=== PATIENT | male | born 1980 | race Caucasian/White ===

== ENCOUNTER 2017-11-19 19:03 | Emergency (ER) | payer OTHER ==
[~2017-11-19] VITALS: Ht 188 cm; Wt 77.1 kg
[2017-11-19] MEDS ORDERED: DITROPAN XL5 M1 PO (19:16)
[2017-11-19] MEDS ORDERED: LIORESAL 10 MG10 MG PO (19:16)
[2017-11-19] MEDS ORDERED: CLONAZEPAM 1 MG1 M1 PO (19:16)
[2017-11-19] MEDS ORDERED: OXYCONTIN10 M1 PO (19:17)
[2017-11-19] MEDS ORDERED: BACTRIM DS TAB1 EACH PO (20:21)
[2017-11-19] MEDS ORDERED: PERCOCET 5-3251 EACH PO (20:28)
[2017-11-19 20:32] VITALS: BP 132/83
== END 2017-11-19 20:32 | disposition home or self-care (01) ==
LOC: ER 19:03
DX: L89.312 Pressure ulcer of right buttock, stage 2 (principal)

== ENCOUNTER → 2017-12-01 | Outpatient (CLI) | payer OTHER ==
[~2017-12-01] MED LIST: BACTRIM DS TAB1 EACH PO; CLONAZEPAM 1 MG1 M1 PO; DITROPAN XL5 M1 PO; LIORESAL 10 MG10 MG PO; OXYCONTIN10 M1 PO; PERCOCET 5-3251 EACH PO
== END ==
LOC: HYPER 07:46
DX: L89.313 Pressure ulcer of right buttock, stage 3 (principal); S71.001D Unspecified open wound, right hip, subsequent encounter; M62.3 Immobility syndrome (paraplegic); G82.20 Paraplegia, unspecified; X58.XXXD Exposure to other specified factors, subsequent encounter

== ENCOUNTER → 2018-05-30 | Outpatient (CLI) | payer OTHER | LOC: HYPER 06:59 | DX: L89.312 Pressure ulcer of right buttock, stage 2 (principal); L89.214 Pressure ulcer of right hip, stage 4; L89.152 Pressure ulcer of sacral region, stage 2; M62.3 Immobility syndrome (paraplegic); F41.9 Anxiety disorder, unspecified ==

== ENCOUNTER 2019-10-03 23:33 | Inpatient (IN) | payer OTHER ==
[~2019-10-03] VITALS: Ht 188 cm; Wt 79.4 kg
[2019-10-03 23:38] VITALS: BP 131/79
[2019-10-04 00:52] LABS: ABSOLUTE NEUTROPHILS 12.2 thou/uL (1.4-8.2); BASOPHILS 0.4 % (0.0-2.0); EOSINOPHILS 0.4 % (0.0-3.0); HEMATOCRIT 36.5 % (42.0-52.0); HEMOGLOBIN 12.1 gm/dL (14.0-18.0); LYMPHOCYTES 10.3 % (24.0-44.0); MCHC 33.3 g/dL (28.0-37.0); MCV 84.3 fL (80.0-100.0); MONOCYTES 4.9 % (1.0-8.0); PLATELET COUNT 636 thou/uL (150-400); RBC 4.33 mil/uL (4.50-6.00); RDW 14.9 % (10.5-14.5); WBC 14.5 thou/uL (4.0-11.0)
[2019-10-04 01:09] LABS: CALCIUM 8.7 mg/dL (8.5-10.1); CREATININE 1.2 mg/dL (0.7-1.3); POTASSIUM 3.2 mmol/L (3.5-5.1)
[2019-10-04 01:14] LABS: ALBUMIN 2.5 g/dL (3.4-5.0); TOTAL BILIRUBIN 0.2 mg/dL (<0.1-1.0); TOTAL PROTEIN 7.5 g/dL (6.4-8.2)
[2019-10-04 04:00] VITALS: BP 88/67
[2019-10-04 10:23] VITALS: BP 109/55
--- NOTE | 2019-10-04 15:48 | NUR ---
ATTEMPTED TO CALL REPORT TO 4W. NURSE UNAVAILABLE AT THIS TIME AND IS TO CALL BACK
--- NOTE | 2019-10-04 16:40 | HC ---
[facility] [place] [address] CONSULTATION Name: ZACK COMER Room #: 170-13 ADM IN M.R.#: [id number] Admission: 10/04/19 Attend Phys: Sonam Mcmillan MD Discharge: Date of : 78 Report #: [id number] THIS REPORT FOR: cc: Yogesh Cuevas MD, Thad A. MD Gates, Clinton R. MD ~ CC: Sonam Cuevas DATE OF SERVICE: 10/04/2019 CONSULTING PHYSICIAN: Dr. Calvillo. REASON FOR CONSULTATION: Sacral wound. ASSESSMENT: Unstageable sacral wound. RECOMMENDATIONS: We will plan for sharp excisional debridement on 10/05/2019 at 11:00 a.m. HISTORY OF PRESENT ILLNESS: The patient is a very pleasant 39-year-old male with paraplegia who presented to the ER and was found to have a sacral decubitus wound. He reports that this was a result of a fall 2 weeks ago and he has been managing it himself at home. Yesterday when he was taking his shower, he leaned and heard a pop and noticed drainage from the wound site. He reports subjective fevers and chills. He denies chest pain, shortness of breath, lightheadedness, nausea, vomiting, diarrhea. PAST MEDICAL HISTORY: 1. Spinal injury. 2. Paraplegia. PAST SURGICAL HISTORY: Denies. SOCIAL HISTORY: Denies current use of alcohol, tobacco or recreational drugs. FAMILY HISTORY: Denies coagulopathy or malignancy. REVIEW OF SYSTEMS: CONSTITUTIONAL: No fever. No chills. HEENT: Denies blurring of vision, double vision, headaches, hearing loss, sinus drainage or sore throat. Denies blurring of vision, double vision, headaches, hearing loss, sinus drainage or sore throat. CARDIOVASCULAR: Denies chest pain, palpitations, orthopnea or paroxysmal nocturnal dyspnea. RESPIRATORY: Denies cough, wheezing, hemoptysis, or shortness of air. [facility] [address] [place] [address] CONSULTATION Name: ZACK COMER Room #: [address] [place] [address] [place] ..#: [id number] Admission: 10/04/19 Attend Phys: Sonam Mcmillan MD Discharge: Date of : 78 Report #: [id number] GASTROINTESTINAL: No nausea. No vomiting. No diarrhea. No Heartburn. No nausea. No vomiting. No diarrhea. No Heartburn. GENITOURINARY: Denies dysuria or hematuria or kidney stones. No urinary frequency, urgency or incontinence. Denies dysuria or hematuria or kidney stones. No urinary frequency, urgency or incontinence. MUSCULOSKELETAL: See above and below. NEUROLOGICAL: See above and below. HEMATOLOGIC AND LYMPHATICS: Denies easy bruising, easy bleeding or enlarged lymph nodes. SKIN: See above and below. ENDOCRINE: No heat or cold intolerance PSYCHIATRIC: Denies depression, anxiety, or schizophrenia. PHYSICAL EXAMINATION: VITAL SIGNS: Temperature 35.8, pulse 89, respiratory rate 18, blood pressure 109/55, pulse ox 98% on room air. GENERAL: No apparent distress, alert and oriented x3. HEENT: PERRLA, EOMI, MMM, NCAT NECK: Supple. No LAD CARDIOVASCULAR: Regular rhythm and rate. Hemodynamically stable. Normal capillary refill. Regular rhythm and rate. Hemodynamically stable. Normal capillary refill. PULMONARY: Nonlabored. Clear to auscultation bilaterally ABDOMEN: Soft, nontender to palpation, no guarding, no rigidity, no rebound tenderness, no hernias. EXTREMITIES: Calves soft, nontender, no edema. SKIN: Unstageable foul smelling necrotic appearing sacral wound. PSYCHIATRIC: Normal mood and affect Normal mood and affect NEUROLOGICAL: Grossly intact. CN II-XII grossly intact. MUSCULOSKELETAL: 5/5 strength in upper extremities and lower extremities bilaterally LYMPHATICS: No cervical, inguinal, or supraclavicular lymphadenopathy. IMAGING: CT lumbar spine. IMPRESSION: 1. Deep soft tissue ulcer overlying the coccyx and sacrococcygeal junction with subtle cortical irregularity of the posterior margin of the coccyx at the base of the ulcer, suggesting subtle cortical bone destruction and osteomyelitis. Stranding and soft tissue thickening in the subcutaneous fat surrounding the ulcer and posterior to the sacrum likely reflecting cellulitis. 2. Cholelithiasis. 3. [place] [address] CONSULTATION Name: ZACK COMER Room #: 170-13 ADM IN M.R.#: [id number] Admission: 10/04/19 Attend Phys: Sonam Mcmillan MD Discharge: Date of : 78 Report #: [id number] LABORATORY DATA: White blood count 14.5, hemoglobin 12.1, hematocrit 36.5, platelets 636. Sodium 135, potassium 3.2, creatinine 1.2, lactic acid 1. <ELECTRONICALLY SIGNED> By: Elijah Calvillo MD 10/04/19 1640 0921 [id number] Elijah Calvillo MD /nt
[2019-10-04 17:13] VITALS: BP 121/77
[2019-10-04 17:40] VITALS: BP 126/75
[2019-10-04 19:01] VITALS: BP 124/84
--- NOTE | 2019-10-04 20:26 | NUR ---
Patient transferred to this unit at approximately 1730. Patient is a paraplegic. He has a sacral wound that appears to be necrotic, smell is very foul. Abrasion-type wound on lower right buttock (no drainage or odor). Pictures taken of both areas. Patient is to be NPO after midnight for I&D in am. Patient has an IV in LAC and in LFA. IV is running with no adverse effects from Antibiotics. Patient's only concern since transfer has been "pain medications." POC followed. Report given to on-coming nurse.
[2019-10-04] MEDS ORDERED: NORTRIPTYLINE H50 M3 PO (21:56)
--- NOTE | 2019-10-05 05:35 | NUR ---
Patient aox4 makes needs known. patient paraplegic.patient been npo since midnight. patient has a sacrum wound with moderate drainage and strong odor with s/s of infection. iv abt administed per order. dressing changed x1 this shift at around 0330. pain controlled this shift. patient in bed asleep at this time breathing regular and unlaboured.
[2019-10-05 06:42] LABS: ABSOLUTE NEUTROPHILS 6.2 thou/uL (1.4-8.2); BASOPHILS 0.5 % (0.0-2.0); EOSINOPHILS 2.2 % (0.0-3.0); HEMATOCRIT 32.4 % (42.0-52.0); HEMOGLOBIN 10.5 gm/dL (14.0-18.0); LYMPHOCYTES 18.2 % (24.0-44.0); MCH 27.7 pg (26.0-34.0); MCHC 32.3 g/dL (28.0-37.0); MCV 85.8 fL (80.0-100.0); MONOCYTES 7.6 % (1.0-8.0); POLYS 71.5 % (36.0-66.0); RBC 3.78 mil/uL (4.50-6.00); RDW 15.7 % (10.5-14.5); WBC 8.6 thou/uL (4.0-11.0)
[2019-10-05 06:47] LABS: PLATELET COUNT 474 thou/uL (150-400)
[2019-10-05 06:54] LABS: CALCIUM 7.4 mg/dL (8.5-10.1); POTASSIUM 3.7 mmol/L (3.5-5.1)
[2019-10-05 08:05] VITALS: BP 94/62
[2019-10-05 15:56] VITALS: BP 115/79
--- NOTE | 2019-10-05 16:42 | NUR ---
Patient had surgery this am which lasted until afternoon. He had Irrigation and Debridement of sacral wound with Dr Calvillo. After this, an MRI was done. Patient did not arrive back on unit until approximately 1600. Patient has a wound vac in place that is running without complications. Vital signs have been stable. POC followed. Will continue to monitor this patient and report todays activities to on-coming nurse.
[2019-10-05 20:05] VITALS: BP 116/78
--- NOTE | 2019-10-06 02:34 | NUR ---
ASSUMED CARE OF PT AT 1900HRS. PT IS AOX4 ADN LETS NEEDS BE KNOWN. FALL PRECAUTION IN PLACE. ABX TREATMENT CONTINUED. PT REPORTED SOME PAIN AND WAS TREATED WITH PRN PAIN MEDS. WOUND VAC IN PLACE AND IS WITHOUT ANY LEAKS. PT WAS ABLE TO GET COMFORTABLE AND SLEEP PART OF THE SHIFT. VSS AND NO S/S OF ACUTE DISTRESS. WILL CONTINUE TO MONITOR.
[2019-10-06 08:39] VITALS: BP 95/58
[2019-10-06 12:11] LABS: ABSOLUTE NEUTROPHILS 9.1 thou/uL (1.4-8.2); BASOPHILS 0.2 % (0.0-2.0); EOSINOPHILS 0.6 % (0.0-3.0); HEMATOCRIT 35.2 % (42.0-52.0); HEMOGLOBIN 11.3 gm/dL (14.0-18.0); LYMPHOCYTES 11.6 % (24.0-44.0); MCH 27.7 pg (26.0-34.0); MCHC 32.2 g/dL (28.0-37.0); MCV 86.1 fL (80.0-100.0); MONOCYTES 4.1 % (1.0-8.0); POLYS 83.5 % (36.0-66.0); RBC 4.08 mil/uL (4.50-6.00); RDW 15.6 % (10.5-14.5); WBC 10.9 thou/uL (4.0-11.0)
[2019-10-06 12:15] LABS: PLATELET COUNT 579 thou/uL (150-400)
[2019-10-06 12:34] LABS: ALBUMIN 2.3 g/dL (3.4-5.0); CALCIUM 8.9 mg/dL (8.5-10.1); CREATININE 0.9 mg/dL (0.7-1.3); MAGNESIUM 2.3 mg/dL (1.8-2.4); POTASSIUM 3.2 mmol/L (3.5-5.1); TOTAL BILIRUBIN 0.2 mg/dL (<0.1-1.0); TOTAL PROTEIN 7.3 g/dL (6.4-8.2)
--- NOTE | 2019-10-06 15:14 | NUR ---
PT ADMITTED RELATED TO SACRAL ULCER POSSIBLE OSTEO. CM REVIEWED CHART AND SPOKE WITH CARE TEAM. CM MET WITH PT AT BEDSIDE THIS DAY. PT IS A&O X4. CM ROLE INTRODUCED. PT INDICATED HE LIVES ALONE IN A TOWNHOUSE WITH NO STEPS. PT INIDCATED HE HAS A MANUAL WC AND A SHOWER CHAIR FOR HOME USE. PT INDICATED HE HAD BEEN INDEPDENENT WITH ADLS AND TRANSFERES CHINESE HERBALIST. PT INDICATED HIS SISTER, BROTHER, AND MOTHER ARE ALL SUPPORTIVE. PT HAD I&D YEST AND HAD WOUND VAC PLACED. CM SPOKE WITH PT ABOUT OPTIONS FOR POST ACUTE CARE STAY MENTIONED LTAC. PT DOESN'T HAVE REV CODES. REFERRAL TO BE SENT TO [facility] FOR REVIEW FOR POSSIBLE ADMISSION. PT INDICATED THAT WC PLANS TO DO CLEAN OUT AGAIN WEDNESDAY. CM TO FOLLOW INDICATED WITH DC PLANNING.
--- NOTE | 2019-10-06 15:50 | NUR ---
DISCHARGE PLANNING. ANTICIPATED DISCHARGE PLANNED FOR NEXT WEEK PER UNIT SW. PATIENT REFERRAL FAXED TO [facility] FOR REVIEW PER REQUEST. CALL PLACED TO [facility] TO NOTIFY. AWAITING RESPONSE. FOLLOWING.
[2019-10-06 19:12] VITALS: BP 112/76
--- NOTE | 2019-10-06 20:12 | NUR ---
Assumed patient care at 0715. Patient continues on Wound Vac. It has had approximately 50cc of Output, secure and intact in sacral area. Vital signs stable. He has been requesting and receiving Ultram, Hydrocodone 10/325mg and Fentanyl IV Push with partial pain control. New IN placed in left hand. IV fluids running without adverse effects. Report given to on-coming nurse.
--- NOTE | 2019-10-07 03:29 | NUR ---
PT CARE ASSUMED WITH PT WATCHING TV AT 1900.PT IS A/O X4.PT HAD AN I$D ON SACRAL WOUND ON 10/05/19 AND A WOUND VAC ON CONTINUES SUCTION PUT IN PLACE.PT C/O PAIN AND PAIN MANAGEMENT WITH FENTANYL,HYDROCODONE AND TRAMADOL WITH LITTLE OR NO RELIEF.IV ACCESS ON LT WRIST .WILL CONTINUE TO MONITOR PER POC
[2019-10-07 06:11] LABS: HEMATOCRIT 29.8 % (42.0-52.0); HEMOGLOBIN 9.8 gm/dL (14.0-18.0); MCH 27.9 pg (26.0-34.0); MCHC 32.9 g/dL (28.0-37.0); RBC 3.51 mil/uL (4.50-6.00); RDW 15.7 % (10.5-14.5); WBC 7.1 thou/uL (4.0-11.0)
[2019-10-07 06:21] LABS: PLATELET COUNT 502 thou/uL (150-400)
[2019-10-07 06:32] LABS: CALCIUM 8.3 mg/dL (8.5-10.1); MAGNESIUM 2.1 mg/dL (1.8-2.4); POTASSIUM 3.9 mmol/L (3.5-5.1)
[2019-10-07 08:00] VITALS: BP 112/76
[2019-10-07 08:15] LABS: ABSOLUTE NEUTROPHILS 3.8 thou/uL (1.4-8.2); NUCLEATED RBCS 1 /100WBC; PLATELET ESTIMATE INCREASED
[2019-10-07 08:16] LABS: ANISOCYTOSIS 1+
[2019-10-07 19:25] VITALS: BP 108/70
--- NOTE | 2019-10-07 20:39 | NUR ---
Assumed pt care this am, pt is able to repostion and turn on his own. Wound vac patent and draining. Pain managed with medications, pt also straight cats himself using his own supplies. POC followed eloina no sings or verbalizations of distress noted. Endorsed to the night nurse.
--- NOTE | 2019-10-08 02:41 | NUR ---
ASSUMED CARE OF PT AT 1900HRS. PT IS AOX4 AND LETS NEEDS BE KNOWN. FALL PRECAUTION IN PLACE. ABX TREATMENT CONTINUED. PT REPORTED SOME PAIN AND WAS TREATED WITH PRN PAIN MEDS. PT STRAIGHT CATHS SELF. WOUND VAC IN PLACE AND WAS RESEALED. WOUND VAC IS PATIENT AND WORKING WELL. PT WAS ABLE TO GET COMFORTABLE AND SLEEP PART OF THE SHIFT. VSS AND NO S/S OF ACUTE DISTRESS. WILL CONTINUE TO MONITOR.
[2019-10-08 07:40] VITALS: BP 104/67
[2019-10-08 14:17] LABS: HEMATOCRIT 34.4 % (42.0-52.0); HEMOGLOBIN 11.1 gm/dL (14.0-18.0); MCH 27.6 pg (26.0-34.0); MCHC 32.1 g/dL (28.0-37.0); MCV 85.8 fL (80.0-100.0); PLATELET COUNT 552 thou/uL (150-400); RBC 4.01 mil/uL (4.50-6.00); RDW 15.8 % (10.5-14.5); WBC 6.6 thou/uL (4.0-11.0)
[2019-10-08 14:30] LABS: % SATURATION 30 % (20-39); IRON 39 ug/dL (65-175); TIBC 130 ug/dL (250-450)
[2019-10-08 14:35] LABS: ANION GAP 5 mmol/L (7-16); BUN 13 mg/dL (7-18); CALCIUM 8.9 mg/dL (8.5-10.1); CHLORIDE 99 mmol/L (98-107); CO2 33 mmol/L (21-32); CREATININE 1.1 mg/dL (0.7-1.3); GLUCOSE 83 mg/dL (74-106); MAGNESIUM 1.9 mg/dL (1.8-2.4); POTASSIUM 3.9 mmol/L (3.5-5.1); SGOT 21 U/L (15-37); SGPT 24 U/L (30-65); SODIUM 137 mmol/L (136-145); TOTAL BILIRUBIN < 0.1 mg/dL (<0.1-1.0); TOTAL PROTEIN 6.2 g/dL (6.4-8.2)
[2019-10-08 14:51] LABS: ABSOLUTE NEUTROPHILS 4.4 thou/uL (1.4-8.2)
[2019-10-08 14:52] LABS: PLATELET ESTIMATE INCREASED
[2019-10-08 14:53] LABS: METAMYELOCYTES 1 %
[2019-10-08 15:45] VITALS: BP 104/70
--- NOTE | 2019-10-08 20:51 | NUR ---
Assumed patient care at 0715. Vital signs stable except for Temperature of 99.2 this evening. Patient was given Tylenol 650mg po for this. Patient has complained of "not feeling well" throughout the shift. He has slept most of the day; fluid intake has been adequate but food intake has been poor. Patient continues to straight cath himself. Output has been over 2000cc's today. He has requested that he not receive Normal Saline IV fluids due to adequate fluid intake and output. IV Team placed fourth IV in left forearm since admission, as , they keep going bad (no infiltration, unable to push flushes through). Patient has Bisacodyl Suppositories prn, was offered and refused. He has been "back and forth" about his pain medications, stating "I don't want to take them today", and, "I guess I just want to stay on the Fentanyl IV Push pain medication." He was given Hydrocodone 10/325 po at 0900 for "level nine" sacral pain, then given Fentanyl 25mg per IV Push with evening medications. He reports only "mild relief" from these medications. Wound Vac continues to be intact (approximately 50cc output today). POC followed. Report given to On-coming nurse.
[2019-10-08 21:30] VITALS: BP 137/83
--- NOTE | 2019-10-09 04:46 | NUR ---
ASSUMED PT CARE AROUND 1930. AXOX4. WOUND VAC TO SACRUM INTACT. DIMAS PUMP STARTED AND WAFFLE CUSIONS PLACED UNDER PT'S HEELS D/T PRESSURE REDUCTION BOOTS NOT READILY AVAILABLE AT THIS TIME. PER 'S ORDER, INFORMED PT THAT HIS FAAMILY CAN BRING THE MAGIC BULLET FOR CONSTIPATION. PT WILL ASK HIS MOTHER TO BRING SOME. PAIN MEDS GIVEN PER MD ORDER. IVF D/C PER CORPORATE TRUST OFFICER. NO S/S ACUTE DISTRESS NOTED OR REPORTED AT THIS TIME. WILL CONT TO MONITOR FOR ANY CHANGES IN CONDITION.
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
[2019-10-09 08:00] VITALS: BP 111/74
[2019-10-09 15:00] VITALS: BP 124/84
--- NOTE | 2019-10-09 16:19 | NUR ---
[facility] INDICATED THAT THEY ARE ABLE TO ACCEPT PT ONCE MEDICALLY STABLE. CM NOTIFIED WOUND CARE, PT, ID, AND HOSPITALIST. DR. VALDEZ INDICATED THAT PT WOULD HAVE A KUB THIS AFTERNOON AND THAT DC WOULD LIKELY BE TOMORROW. CM TO FOLLOW INDICATED WITH DC PLANNING.
--- NOTE | 2019-10-09 17:07 | PATH ---
[facility] [address] [place] [address] PATHOLOGY RPT PROCEDURE Name: HERMILO ZEPEDA Yuki Room #: 457-P [facility] IN M.R.#: [id number] Admission: 10/04/19 Date of : 78 Discharge: Report #: [id number] Path Case #: [id number] [facility] Accession Number: [id number] . 01 Material submitted: . coccyx - COCCYX . 01 Clinical history: . Sacral wound, unstageable. . 02 Diagnosis: Bone, coccyx, debridement: - Fragments of bone associated with acute osteomyelitis as well as osteonecrosis. - Surrounding fibrovascular connective tissue showing marked acute inflammation, as well as fibrinoid degeneration and necrosis, consistent with debridement tissue. (IUV:kassy; 10/09/2019) [facility] 10/09/2019 1556 Local . 02 Electronically signed: . Pratibha Mathias MD, Pathologist NPI- [id number] . 01 Gross description: . Received in formalin labeled "Hermilo Zepeda coccyx" is an irregular fragment of grace-white bone and attached soft tissue measuring 1.3 x 0.8 x 0.7 cm. The specimen is bisected and submitted in A1 following decalcification. ([facility]; 10/07/2019) [facility] 10/07/2019 0957 Local . 02 Pathologist provided ICD-10: M86.10, M87.9 . 02 CPT . 376144, 211377 Specimen Comment: A courtesy copy of this report has been sent to [phone] Specimen Comment: [phone], Specimen Comment: Report sent to DR TOLENTINO,DR MEDRANO / DR RAY Performed at: [address] [id number] MD Chalino Galeas MD Phone: [phone] Performed at: [address] [id number] [address] [address] PATHOLOGY RPT PROCEDURE Name: HERMILO ZEPEDA A Room #: 457-P ADM IN M.R.#: [id number] Admission: 10/04/19 Date of : 78 Discharge: Report #: [id number] Path Case #: [id number] MD Pratibha Mathias MD Phone: [phone]
[2019-10-09 18:59] VITALS: BP 101/68
--- NOTE | 2019-10-09 19:28 | NUR ---
Had a big BM, compained of pain in wound site, pain medication given and worked.
--- NOTE | 2019-10-10 02:57 | NUR ---
PAIN CONTROLLED THIS SHIFT. PATIENT HAS A WOUND VAC RUNNING. PATIENT UPSET D/T GOING TO THE LONG TERM. PATIENT CONTINUES TO SAY HE FEELS DEPRESSION BECAUSE HE DONT WANT TO GIVE UP HIS APARTMENT AND HE DONT KNOW WHERE TO KEEP HIS CAR. GREGORY WILL ADVICED TO TALK TO AUGER SUPERVISOR IN THE AM.PATIENT UP PLAYING VIDEO GAMES.
[2019-10-10 07:00] VITALS: BP 101/52
[2019-10-10] MEDS ORDERED: PERCOCET 7.5-31 EACH PO (11:51)
[2019-10-10] MEDS ORDERED: NICOTINE1 EAC2 TRANSDERM (11:54)
[2019-10-10] MEDS ORDERED: PROBIOTIC1 EAC7 PO (11:54)
[2019-10-10] MEDS ORDERED: MIRALAX17 GM PO (11:54)
[2019-10-10] MEDS ORDERED: UNASYN 3 GM VIAL3 G1 IM (11:54)
[2019-10-10] MEDS ORDERED: ENOXAPARIN40 MG/0.1 SUBQ (11:54)
[2019-10-10] MEDS ORDERED: AMITIZA 24 MCG24 MCG PO (11:54)
[2019-10-10] MEDS ORDERED: TYLENOL325 MG PO (11:54)
--- NOTE | 2019-10-10 13:50 | NUR ---
CARE TEAM INDICATED THAT PT IS MEDICALLY STABLE TO DISCHARGE TO [facility] THIS DAY. [facility] VISITED PT AT BEDSIDE THIS AM. ORDERS FAXED. CHART COPY MADE. PT TO HAVE WOUND VAC REMOVED AND A WET TO DRY ADMINISTERED. PT INIDCATED DESIRE TO DISCHARGE IN HIS WC WHICH HE HAS IN HIS ROOM RATHER THAN VIA STRETCHER OR AMBULANCE. WC STATED THAT WAS SAFE. REPORT TO BE CALLED TO . NO OTHER CM INTERVENTION INDICATED. CASE CLOSED.
--- NOTE | 2019-10-10 14:28 | NUR ---
WOUND CARE D/C NOTE; VAC DRESSING REMOVED. CLEANSED WOUND WITH NORMAL SALINE. APPLIED A SALINE MOIST GAUZE, COVERED WITH AN ABD. NON ODEROUS WOUND. RECOMMENDATION; CONTINUE VAC THERAPY AT [facility]. RN PRESENT
--- NOTE | 2019-10-10 17:17 | NUR ---
VASCULAR ACCESS NOTE ORDER VERIFIED FOR PICC PLACEMENT. PATIENT CONSENTED FOR PROCEDURE. L BRACHIAL VEIN WIDELY PATENT ON U.S ASSESSMENT. PATIENT PREPPED AND DRAPED UNDER STERILE CONDITIONS. 1% LIDOCAINE 3ML GIVEN SUBQ INJECTION. VEIN CANNULATED WITH ONE ATTEMPT. GUIDEWIRE ADVANCED EASILY. VEIN DILATED. GUIDEWIRE REMOVED INTACT. 4FR SL PICC TRIMMED TO 50CM INSERTED TO 49CM INTERNAL AND 1CM EXTERNAL. CXR VERIFICATION FOR PLACEMENT. LINE RELEASED FOR IMMMEDIATE USE TO RN. LINE FLUSHES AND DRAWS EASILY. PATIENT TOLERATED PROCEDURE WELL. PICC OK TO USE
--- NOTE | 2019-10-10 19:04 | NUR ---
Assumed pt care this am, VS stable. Pain managed with medications. Wound vac removed by wound care team, wet to dry dressing in place. IV removed. PICC line inserted. Report given to [facility] nurse. POC followed no signs or verbalizations of distress have been noted. PT is now dc and left with his WC and belongings.
== END 2019-10-10 18:36 | DRG 853 ==
LOC: ER 23:33 → EROBS 10-04 02:15 → 4W 10-04 02:15 → EROBS 10-04 10:54 → 4W 10-04 17:19
PROVIDERS: Emergency Medicine; Nurse Practitioner; ADMIT Internal Medicine
PROC: 0QBS0ZX Excision of Coccyx, Open Approach, Diagnostic (ICD-10-PCS; principal; 2019-10-05)
PROC: 0QB10ZZ Excision of Sacrum, Open Approach (ICD-10-PCS; principal; 2019-10-05)
PROC: 02H633Z Insertion of Infusion Device into Right Atrium, Percutaneous Approach (ICD-10-PCS; 2019-10-10)
DX: A41.9 Sepsis, unspecified organism (principal); L89.154 Pressure ulcer of sacral region, stage 4; E43 Unspecified severe protein-calorie malnutrition; G82.20 Paraplegia, unspecified; E44.0 Moderate protein-calorie malnutrition; K80.21 Calculus of gallbladder without cholecystitis with obstruction; A18.01 Tuberculosis of spine; M46.28 Osteomyelitis of vertebra, sacral and sacrococcygeal region; E87.6 Hypokalemia; I95.9 Hypotension, unspecified; K59.00 Constipation, unspecified; D47.3 Essential (hemorrhagic) thrombocythemia; D64.9 Anemia, unspecified; Z68.22 Body mass index [BMI] 22.0-22.9, adult; Z98.1 Arthrodesis status; Z79.899 Other long term (current) drug therapy
CPT/HCPCS: 10047; 27000; 50010; 50101; 50386; 50403; 50970; 53078; 62110; 62900; 70005

== ENCOUNTER → 2019-12-27 | Outpatient (CLI) | payer OTHER ==
[~2019-12-27] MED LIST changes: +AMITIZA 24 MCG24 MCG PO; +ENOXAPARIN40 MG/0.1 SUBQ; +MIRALAX17 GM PO; +NICOTINE1 EAC2 TRANSDERM; +NORTRIPTYLINE H50 M3 PO; +PERCOCET 7.5-31 EACH PO; +PROBIOTIC1 EAC7 PO; +TYLENOL325 MG PO; +UNASYN 3 GM VIAL3 G1 IM
== END ==
LOC: HYPER 10:12
DX: L02.31 Cutaneous abscess of buttock (principal); L02.91 Cutaneous abscess, unspecified; M62.3 Immobility syndrome (paraplegic); G82.20 Paraplegia, unspecified; F41.9 Anxiety disorder, unspecified

== ENCOUNTER → 2020-01-10 | Outpatient (CLI) | payer OTHER | LOC: HYPER 13:15 | DX: L02.31 Cutaneous abscess of buttock (principal); L84 Corns and callosities; G82.21 Paraplegia, complete; M62.3 Immobility syndrome (paraplegic); F41.9 Anxiety disorder, unspecified ==

== ENCOUNTER → 2020-01-24 | Outpatient (CLI) | payer OTHER | LOC: HYPER 13:42 | PROVIDERS: ATTEND Emergency Medicine | DX: L02.31 Cutaneous abscess of buttock (principal); L84 Corns and callosities; M62.3 Immobility syndrome (paraplegic); F41.9 Anxiety disorder, unspecified ==

== ENCOUNTER → 2020-02-07 | Outpatient (CLI) | payer OTHER ==
[~2020-02-07] MED LIST changes: +OXYBUTYNIN 5 MG5 M2 PO
== END ==
LOC: HYPER 07:51
PROVIDERS: ATTEND Emergency Medicine
DX: L02.31 Cutaneous abscess of buttock (principal); L84 Corns and callosities; M62.3 Immobility syndrome (paraplegic); F41.9 Anxiety disorder, unspecified

== ENCOUNTER 2020-02-18 18:44 | Inpatient (IN) | payer OTHER ==
[~2020-02-18] VITALS: Ht 188 cm; Wt 83.5 kg
[~2020-02-18 18:44] MED LIST changes: -OXYBUTYNIN 5 MG5 M2 PO
[2020-02-18 19:03] VITALS: BP 101/62
[2020-02-18 19:38] LABS: URINE BILIRUBIN NEGATIVE (Negative); URINE BLOOD 2+ (Negative); URINE CLARITY SL CLOUDY; URINE COLOR YELLOW; URINE GLUCOSE-RANDOM* NEGATIVE (Negative); URINE KETONES NEGATIVE (Negative); URINE PROTEIN (DIPSTICK) 2+ (Negative); URINE SPECIFIC GRAVITY 1.015 (1.005-1.035); URINE UROBILINOGEN 0.2 E.U./dl (0.2-1.0)
[2020-02-18 19:41] LABS: URINE LEUKOCYTES-REFLEX 3+ (Negative); URINE NITRITE-REFLEX POSITIVE (Negative)
[2020-02-18 19:41] LABS: ABSOLUTE NEUTROPHILS 17.2 thou/uL (1.4-8.2); BASOPHILS 0.1 % (0.0-2.0); HEMATOCRIT 36.4 % (42.0-52.0); HEMOGLOBIN 12.1 gm/dL (14.0-18.0); MCH 26.7 pg (26.0-34.0); MCHC 33.3 g/dL (28.0-37.0); MCV 80.1 fL (80.0-100.0); MONOCYTES 3.6 % (1.0-8.0); PLATELET COUNT 245 thou/uL (150-400); POLYS 94.3 % (36.0-66.0); RBC 4.55 mil/uL (4.50-6.00); RDW 17.6 % (10.5-14.5); WBC 18.3 thou/uL (4.0-11.0)
[2020-02-18 19:52] LABS: CALCIUM 8.3 mg/dL (8.5-10.1); CREATININE 2.2 mg/dL (0.7-1.3); POTASSIUM 3.4 mmol/L (3.5-5.1)
[2020-02-18 19:57] LABS: ALBUMIN 2.5 g/dL (3.4-5.0); TOTAL BILIRUBIN 0.2 mg/dL (0.2-1.0)
[2020-02-18 20:20] LABS: CASTS None Seen /LPF (None Seen); CRYSTALS None Seen /LPF (None Seen); SQUAMOUS 0-3 Few /LPF (0-3); URINE WBC-REFLEX >25 Many /HPF (0-5)
[2020-02-18 20:21] LABS: BACTERIA-REFLEX >30 Many /HPF (None Seen); URINE RBC 0-2 Rare /HPF (0-2)
[2020-02-18 21:52] VITALS: BP 101/64
[2020-02-18 22:03] VITALS: BP 101/64
[2020-02-18 23:05] VITALS: BP 94/57
[2020-02-19] MEDS ORDERED: OXYBUTYNIN 5 MG5 M2 PO (01:46)
[2020-02-19] MEDS ORDERED: NORTRIPTYLINE H50 M3 PO (02:58)
[2020-02-19 04:07] LABS: HEMOGLOBIN 11.1 gm/dL (14.0-18.0); MCH 26.3 pg (26.0-34.0); MCHC 31.8 g/dL (28.0-37.0); MCV 82.6 fL (80.0-100.0); RBC 4.24 mil/uL (4.50-6.00); RDW 17.9 % (10.5-14.5); WBC 15.7 thou/uL (4.0-11.0)
[2020-02-19 04:17] LABS: CALCIUM 7.3 mg/dL (8.5-10.1); CREATININE 2.2 mg/dL (0.7-1.3); POTASSIUM 3.4 mmol/L (3.5-5.1)
[2020-02-19 05:51] VITALS: BP 98/62
[2020-02-19 08:29] VITALS: BP 98/73
[2020-02-19 11:10] VITALS: BP 94/49
[2020-02-19 15:27] VITALS: BP 104/63
[2020-02-19 19:40] VITALS: BP 101/60
[2020-02-20 05:14] LABS: HEMATOCRIT 35.6 % (42.0-52.0); HEMOGLOBIN 11.6 gm/dL (14.0-18.0); MCH 26.5 pg (26.0-34.0); MCHC 32.6 g/dL (28.0-37.0); MCV 81.4 fL (80.0-100.0); RBC 4.37 mil/uL (4.50-6.00); RDW 18.5 % (10.5-14.5); WBC 12.9 thou/uL (4.0-11.0)
[2020-02-20 07:39] VITALS: BP 116/73
[2020-02-20 15:48] VITALS: BP 123/76
[2020-02-20 16:26] VITALS: BP 123/76
[2020-02-20 19:57] VITALS: BP 118/85
[2020-02-21 06:01] LABS: HEMATOCRIT 35.6 % (42.0-52.0); HEMOGLOBIN 11.8 gm/dL (14.0-18.0); MCH 26.8 pg (26.0-34.0); MCHC 33.1 g/dL (28.0-37.0); MCV 80.9 fL (80.0-100.0); RBC 4.4 mil/uL (4.50-6.00); RDW 18.6 % (10.5-14.5); WBC 9.3 thou/uL (4.0-11.0)
[2020-02-21 06:54] LABS: CALCIUM 8.9 mg/dL (8.5-10.1); CREATININE 2.4 mg/dL (0.7-1.3)
[2020-02-21 07:15] VITALS: BP 107/63
[2020-02-21 15:00] VITALS: BP 125/85
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
[2020-02-21 19:56] VITALS: BP 124/86
[2020-02-22 06:21] LABS: CALCIUM 8.6 mg/dL (8.5-10.1); POTASSIUM 3.9 mmol/L (3.5-5.1)
[2020-02-22 08:12] VITALS: BP 117/70
[2020-02-22] MEDS ORDERED: AMOXICILLIN875 MG PO (09:08)
[2020-02-22 09:24] VITALS: BP 123/76
[2020-02-22 10:33] VITALS: BP 123/76
--- NOTE | 2020-02-23 07:27 | HC ---
[facility] [place] [address] CONSULTATION Name: ZACK COMER Room #: 457-P [facility] IN M.R.#: [id number] Admission: 02/18/20 Attend Phys: Parish Rea MD Discharge: 02/22/20 Date of : 78 Report #: [id number] THIS REPORT FOR: cc: Yogesh Cuevas MD, Thad A. MD Al-Elysia,Adela Quiroz MD ~ CC: Parish Cuevas REASON FOR CONSULTATION: Acute kidney injury. REASON FOR PRESENTATION: Fever. 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 He continues to be independent. He lives by himself. He presented to the Emergency Room reporting that he has been having significant fever. On arrival, the patient's creatinine was mildly elevated. He received few doses of ibuprofen. He grew E. coli in his urine. After receiving the ibuprofen, the patient's creatinine peaked at 2.4. He is being treated accordingly for his urinary tract infection. He is also maintained on IV fluid. His creatinine has trended down to 2.0 as of this morning. The patient has a Sue catheter with significant urine output. I was consulted to manage his acute kidney injury. PAST MEDICAL HISTORY: Paraplegia due to spinal injury. ALLERGIES: None. FAMILY HISTORY: No significant chronic kidney disease in the family. MEDICATIONS: 1. Baclofen. 2. Clonazepam. 3. Oxybutynin. 4. Nortriptyline. REVIEW OF SYSTEMS: GENERAL: Significant for fever and chills. CARDIOVASCULAR: No chest pain or palpitation. PULMONARY: No cough or hemoptysis. GASTROINTESTINAL: No nausea or vomiting. GENITOURINARY: As per the history of present illness. NEUROLOGIC: Occasional headaches and dizziness. He is also paraplegic. PHYSICAL EXAMINATION: GENERAL: Alert, oriented, in no apparent distress. VITAL SIGNS: Temperature 37, pulse rate is 95, respiratory rate 16, blood [facility] [address] [place] [address] CONSULTATION Name: ZACK COMER Yuki Room #: [address] [place] [address] [place] [facility].#: [id number] Admission: 02/18/20 Attend Phys: Parish Rea MD Discharge: 02/22/20 Date of : 78 Report #: [id number] pressure is 123/76. HEAD AND NECK: No jugular venous distention, no bruit, no thyromegaly. CHEST: No crackles. CARDIOVASCULAR: Regular with no rub detected. ABDOMEN: Soft, nontender. EXTREMITIES: Lower extremities have changes consistent with paraplegia and contractures. LABORATORY VALUES: White blood cell count on arrival was 18.3 and is down to 9.3. Platelet is 313. Sodium is 138, potassium 3.9, BUN 22, creatinine of 2.0, down from 2.4. RENAL ULTRASOUND: Negative. URINE CULTURE: Significant for E. coli. ASSESSMENT, IMPRESSION, AND PLAN: 1. Acute kidney injury. 2. Urinary tract infection. 3. Paraplegia. 4. The patient's acute kidney injury is related to his current urinary tract infection, nonsteroidal anti-inflammatory usage. He seems to be improving with the current measures including IV fluid and antibiotic. 5. Continue with the same. 6. ID is currently managing his antibiotic and we will defer the management of outpatient antibiotic to them. <ELECTRONICALLY SIGNED> By: Adela Watters MD 02/23/20 0727 [id number] Adela Watters MD /nt
== END 2020-02-22 13:13 | disposition home health service (06) | DRG 871 ==
LOC: ER 18:44 → 3W 20:34 → EROBS 20:34 → 3W 22:03 → 4W 02-19 17:47
PROVIDERS: Emergency Medicine; Nurse Practitioner Family; ADMIT Hospitalist; ATTEND Hospitalist
DX: A41.9 Sepsis, unspecified organism (principal); L89.154 Pressure ulcer of sacral region, stage 4; E43 Unspecified severe protein-calorie malnutrition; N17.0 Acute kidney failure with tubular necrosis; G82.20 Paraplegia, unspecified; N12 Tubulo-interstitial nephritis, not specified as acute or chronic; Z20.828 Contact with and (suspected) exposure to other viral communicable diseases; T14.8XXA Other injury of unspecified body region, initial encounter; K59.09 Other constipation; G43.909 Migraine, unspecified, not intractable, without status migrainosus; G47.00 Insomnia, unspecified; E87.6 Hypokalemia; B96.20 Unspecified Escherichia coli [E. coli] as the cause of diseases classified elsewhere; Z87.891 Personal history of nicotine dependence; Z79.1 Long term (current) use of non-steroidal anti-inflammatories (NSAID); X58.XXXA Exposure to other specified factors, initial encounter; Y93.89 Activity, other specified; Y92.89 Other specified places as the place of occurrence of the external cause; Y99.8 Other external cause status; Z68.23 Body mass index [BMI] 23.0-23.9, adult
CPT/HCPCS: 10040; 10879

== ENCOUNTER → 2020-03-06 | Outpatient (CLI) | payer OTHER ==
[~2020-03-06] MED LIST changes: +AMOXICILLIN875 MG PO; +OXYBUTYNIN 5 MG5 M2 PO
== END ==
LOC: HYPER 08:47
PROVIDERS: ATTEND Emergency Medicine
DX: L98.492 Non-pressure chronic ulcer of skin of other sites with fat layer exposed (principal); L02.31 Cutaneous abscess of buttock; L02.212 Cutaneous abscess of back [any part, except buttock and flank]; M62.3 Immobility syndrome (paraplegic); F41.9 Anxiety disorder, unspecified

== ENCOUNTER → 2020-03-20 | Outpatient (CLI) | payer OTHER | LOC: HYPER 07:21 | PROVIDERS: ATTEND Emergency Medicine | DX: L98.492 Non-pressure chronic ulcer of skin of other sites with fat layer exposed (principal); L02.31 Cutaneous abscess of buttock; L02.212 Cutaneous abscess of back [any part, except buttock and flank]; M62.3 Immobility syndrome (paraplegic); F41.9 Anxiety disorder, unspecified ==